=== PATIENT | male | born 1945 | race Caucasian/White ===

== ENCOUNTER 2020-06-16 10:37 | Outpatient (CLI) | payer MEDICARE, OTHER, SELFPAY ==
--- NOTE | ~2020-06-16 | XR_ITS ---
XR wrist RT min 3V DATE: 06/16/2020 11:02 INDICATION: Pain and swelling; no injury TECHNIQUE: 4 views COMPARISON: None FINDINGS: No fracture or dislocation, periosteal reaction or bone destruction. Joint spaces are prese rved. No erosive change or chondrocalcinosis. There is prominent narrowing at the first metacarpophalangeal joint consistent with osteoarthritis There is minimal osteoarthritic change at the first carpometacarpal joint. 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
== END 2020-06-16 10:38 | disposition home or self-care (01) ==
LOC: ANHIMG 10:47
PROVIDERS: Visit Provider Plastic Surgery
DX: M19.031 Primary osteoarthritis, right wrist (principal)
CPT/HCPCS: 73110